=== PATIENT | male | born 1990 ===

== ENCOUNTER 2017-03-29 22:33 | Emergency (ER) | payer SELFPAY ==
[~2017-03-29] VITALS: Ht 170.2 cm; Wt 67.0 kg
[2017-03-29 22:35] VITALS: Ht 170.2 cm; Wt 67.0 kg
--- NOTE | 2017-03-29 23:38 | ERA ---
ER Documentation Chief Complaint Date/Time DATE: 03/29/17 TIME: 23:38 Chief Complaint brought in by ra c/o etoh HPI The patient is a 26-year-old male, presenting to the ER because he was drink on the street with his friends. He did not want to go to the ER however he was brought to the ER. He denies homicidal/suicidal ideation He denies any headache , trauma, facial pain, neck pain, chest pain, dyspnea, abdominal pain, vomiting , dysuria, diarrhea. He smokes and drinks, denies illicit drug, homeless Past medical/surgical history: None ROS All systems reviewed and are negative except as per history of present illness. Allergies Allergies: Coded Allergies: No Known Drug Allergies (Verified Allergy, Unknown, 03/29/17) Physical Exam Vitals Vital Signs Date Time Temp Pulse Resp B/P Pulse Ox O2 Delivery O2 Flow Rate FiO2 03/30/17 00:06 98.1 85 20 127/78 98 Room Air 03/29/17 22:35 97.0 88 20 123/83 98 Physical Exam Const: No acute distress. Head: Atraumatic. Eyes: Normal Conjunctiva. ENT: Normal External Ears, Nose and Mouth. Neck: Full range of motion. No meningismus. Resp: Clear to auscultation bilaterally. Cardio: Regular rate and rhythm. Abd: Soft, non distended, normal bowel sounds, non tender. Skin: No petechiae or rashes. Back: No midline or flank tenderness. Ext: No cyanosis, or edema. Neur: Awake and alert. No focal deficit Psych: Normal Mood and Affect. Procedures/MDM MEDICAL MAKING DECISION: The patient is a 26-year-old male, presenting to the ER because he has been drinking with his friends. He is awake, alert, ambulate independently and is stable for outpatient follow-up He was able to eat well in the ER with any difficulty and able to negotiate his community. Departure Diagnosis: Primary Impression: Substance abuse Condition: Good Comments I discussed the findings with the patient. I advised the patient to follow-up with the primary physician in about 1-2 days, sooner if needed and return if any concern. The patient's blood pressure was elevated (>120/80) but appears stable without evidence of hypertension emergency or urgency. The patient was counseled about the risks of hypertension and urged to pursue outpatient monitoring and therapy within a week with their primary care physician. NAMRATA SANTIAGO MD Mar 29, 2017 23:38
[2017-03-30 00:06] VITALS: TEMP 98.1
[2017-03-30 02:03] VITALS: BP 118/81; PULSE 79; RESP 18
== END 2017-03-30 02:05 | disposition home or self-care (01) ==
LOC: E/R 22:33
DX: F19.10 Other psychoactive substance abuse, uncomplicated (principal); R40.2142 Coma scale, eyes open, spontaneous, at arrival to emergency department; R40.2252 Coma scale, best verbal response, oriented, at arrival to emergency department; R40.2362 Coma scale, best motor response, obeys commands, at arrival to emergency department
CPT/HCPCS: 99283